=== PATIENT | male | born 1990 | race African-American/Black ===

== ENCOUNTER 2017-05-23 12:01 | Emergency (ER) | payer MEDICAID ==
[~2017-05-23] VITALS: Ht 182.9 cm; Wt 86.0 kg
[2017-05-23] MEDS ORDERED: PEG 3350/NA SULF,BICARB,CL/KCL 4000 ML SOLUTION PO ONE (13:45)
[2017-05-23 14:13] VITALS: BP 126/78
== END 2017-05-23 14:23 | disposition home or self-care (01) ==
LOC: EMS 12:02
DX: T18.8XXA Foreign body in other parts of alimentary tract, initial encounter (principal); F17.210 Nicotine dependence, cigarettes, uncomplicated; Z91.013 Allergy to seafood; X58.XXXA Exposure to other specified factors, initial encounter; Y93.89 Activity, other specified; Y92.89 Other specified places as the place of occurrence of the external cause; Y99.8 Other external cause status
CPT/HCPCS: 74018; 99284